=== PATIENT | female | born 1950 | race Caucasian/White ===

== ENCOUNTER → 2024-05-14 | Outpatient (CLI) | payer MEDICARE | LOC: RAD 09:53 | DX: R05.9 Cough, unspecified (principal) ==

== ENCOUNTER → 2024-05-28 | Outpatient (CLI) | payer MEDICARE | LOC: RAD 09:04 | DX: J84.10 Pulmonary fibrosis, unspecified (principal); J13 Pneumonia due to Streptococcus pneumoniae; J47.9 Bronchiectasis, uncomplicated ==

== ENCOUNTER → 2024-11-27 | Outpatient (CLI) | payer MEDICARE | LOC: RAD 09:41 | DX: J47.1 Bronchiectasis with (acute) exacerbation (principal); D71 Functional disorders of polymorphonuclear neutrophils ==